=== PATIENT | female | born 1990 | race American Indian/Alaskan Native ===

== ENCOUNTER 2020-06-30 22:42 | Emergency (ER) | payer SELFPAY ==
[2020-06-30 23:24] VITALS: BP 115/85
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
== END 2020-07-01 02:10 | disposition home or self-care (01) ==
LOC: ED 22:42
DX: S09.90XA Unspecified injury of head, initial encounter (principal); R51 Headache; M79.605 Pain in left leg; Z79.899 Other long term (current) drug therapy; V49.59XA Passenger injured in collision with other motor vehicles in traffic accident, initial encounter; Y92.410 Unspecified street and highway as the place of occurrence of the external cause; Y93.89 Activity, other specified; Y99.8 Other external cause status
CPT/HCPCS: 70450